=== PATIENT | female | born 1955 | race Caucasian/White ===

== ENCOUNTER 2017-03-07 15:10 | Emergency (ER) | payer OTHER ==
[~2017-03-07] VITALS: Ht 167.6 cm; Wt 90.0 kg
[~2017-03-07 15:10] MED LIST: DIAZ-90 PO; HYDR-762 PO; IBUP400T22 PO; MELO7.5O PO; METF850T PO; ONDA4TAB35 PO; PRAM0.1224 PO
[2017-03-07 15:12] VITALS: Ht 167.6 cm; Wt 90.0 kg
[2017-03-07] MEDS ORDERED: KETOROLAC 15 MG INJ IM STA ×2 (15:46→17:18)
[2017-03-07] MEDS ORDERED: DIAZEPAM 5 MG TAB PO ONE (16:00)
[2017-03-07] MEDS ORDERED: KETOROLAC 15 MG INJ IV STA (16:23)
[2017-03-07] MEDS ORDERED: ONDANSETRON (ODT) 4 MG TAB ODT STA (16:23)
[2017-03-07] MEDS ORDERED: HYDR-906 PO (16:55)
--- NOTE | 2017-03-07 16:55 | ERD ---
ER Documentation Chief Complaint Date/Time DATE: 03/07/17 TIME: 16:50 Chief Complaint CHRONIC BACK PAIN , WORSE X 2 DAYS HPI This 61-year-old female presents to emergency department for treatment of chronic back pain, history of disc disease, on Mobic and ibuprofen, history of cortisone injections a year and a half ago. Patient denies any alteration in bowel or bladder, difficulty ambulating, reports pain with ambulating. She reports that pain is located on left side radiating to left leg. Routine medication is not helping. Patient denies that she has gone to physical therapy in the last year, patient is not treated by pain management. ROS All systems reviewed and are negative except as per history of present illness. Medications Home Meds Active Scripts Diazepam* (Valium*) 5 Mg Tablet, 5 MG PO Q8 Y for MUSCLE SPASMS, #10 TAB Prov:CHAD MILLIGAN MD 06/26/15 Ondansetron Hcl* (Zofran* ODT) 4 mg -ODT Tab.disper, 4 MG PO Q6 Y for NAUSEA AND /OR VOMITING, #20 TAB Prov:CHAD MILLIGAN MD 06/26/15 Hydrocodone Bit-Acetaminophen* ([place]*) 10-325 Mg Tablet, 1 TAB PO Q6 Y for PAIN , #20 TAB Prov:CHAD MILLIGAN MD 06/26/15 Reported Medications Ibuprofen* (Ibuprofen*) 400 Mg Tablet, PO Q6H Y for PAIN, TAB 06/26/15 Pramipexole* (Mirapex*) 0.125 Mg Tablet, PO HS, TAB 06/26/15 Meloxicam* (Meloxicam*) 7.5 Mg/5 Ml Oral.susp, 15 MG PO BID, ML 06/26/15 Metformin Hcl* (Metformin Hcl*) 850 Mg Tablet, 850 MG PO BID WITH MEALS, TAB 06/26/15 Allergies Allergies: Coded Allergies: Penicillins (Verified Allergy, Mild, 06/26/15) PMhx/Soc History of Surgery: No Anesthesia Reaction: No Hx Neurological Disorder: No Hx Respiratory Disorders: No Hx Cardiac Disorders: No Hx Psychiatric Problems: No Hx Miscellaneous Medical Probl: No Hx Alcohol Use: No Hx Substance Use: No Hx Tobacco Use: Yes (1/2 PACK A DAY) Smoking Status: Current every day smoker Physical Exam Vitals Vital Signs Date Time Temp Pulse Resp B/P Pulse Ox O2 Delivery O2 Flow Rate FiO2 03/07/17 15:12 98.0 90 18 172/89 98 Vitals stable, triage notes reviewed Physical Exam Const: Obese, well-nourished well-hydrated no acute distress Head: Atraumatic Eyes: Normal Conjunctiva, PERRLA, EOM ENT: Normal External Ears, Nose and Mouth, mucous membranes. Neck: Resp: Respirations even and unlabored, no respiratory distress Cardio: Abd: Soft, non tender, non distended. Normal bowel sounds Skin: Back Exam: Skin: [No bruising or rash Compartments: Soft Motor: Normal flexion and extension of bilateral hip/knee/ ankle/foot Sensation: Intact to light touch throughout Bones: No midline TTP Ext: Neur: Awake and alert Psych: Normal Mood and Affect Results 24 hrs Current Medications Medications (Trade) Dose Ordered Sig/Lokesh Route PRN Reason Start Time Stop Time Status Last Admin Dose Admin Ketorolac Tromethamine (Toradol) 15 mg ONCE STAT IM 03/07/17 15:46 03/07/17 15:48 DC 03/07/17 15:57 Diazepam (Valium) 5 mg ONCE ONCE PO 03/07/17 16:00 03/07/17 16:01 DC 03/07/17 15:56 Ketorolac Tromethamine (Toradol) 15 mg ONCE STAT IV 03/07/17 16:23 03/07/17 16:24 Cancel Ondansetron HCl (Zofran Odt) 4 mg ONCE STAT ODT 03/07/17 16:23 03/07/17 16:24 Cancel Departure Condition: Good Patient Instructions: Back Pain (Acute Or Chronic) Referrals: [facility] Additional Instructions: Thank you for for coming to [facility] for your care today. Please ask your nurse or provider if you have questions about your care today and do not leave until all your questions have been answered. Please use any medications given as directed and follow-up with your doctor (or the doctor you were referred to) in the next 2-3 days. If you do not have a primary care doctor you may follow up at the [facility] (listed below). You may also use motrin and tylenol as needed for fever and/or pain unless instructed otherwise by your provider or nurse. Indications for more urgent follow-up have been discussed, but you may return to the Emergency Department at ANY time for any worrisome or worsening symptoms. If you have abdominal pain, please know that no test or exam you received is perfect and you should follow up within 8 hours for continued pain. If you had any imaging studies today, such as an X-Ray or CT Scan, these studies will be reviewed later by a radiologist. You will be called if there are important findings that were not identified today, so make sure the contact information you provided at registration is correct. If you received any narcotic pain control medicine today, such as Vicodin, Morphine or Dilaudid, your coordination and judgment may be affected for a number of hours. Please do not drive or operate heavy machinery, and you may want someone to assist you at home. If you were given a prescription for narcotic medication, be aware that it is very addictive- use sparingly and only if necessary. LEON LOVE Mar 07, 2017 16:55
== END 2017-03-07 17:29 | disposition home or self-care (01) ==
LOC: FTE 15:10
DX: M54.9 Dorsalgia, unspecified (principal); F17.210 Nicotine dependence, cigarettes, uncomplicated; Z79.84 Long term (current) use of oral hypoglycemic drugs
CPT/HCPCS: 96372; J1885; Z7502; Z7610

== ENCOUNTER 2019-04-12 05:41 | Emergency (ER) | payer OTHER ==
[~2019-04-12] VITALS: Ht 162.6 cm; Wt 85.0 kg
[~2019-04-12 05:41] MED LIST changes: +CYCL10TA7 PO; -DIAZ-90 PO; +DIAZ5TAB PO; +HYDR-4011 PO; +IBUP-1541 PO; -IBUP400T22 PO; +IBUP800T48 PO; -METF850T PO; +METF850T13 PO
[2019-04-12 05:44] VITALS: Ht 162.6 cm; Wt 85.0 kg
[2019-04-12] MEDS ORDERED: KETOROLAC 60 MG INJ IM STA (06:22)
[2019-04-12] MEDS ORDERED: HYDROCODONE/APAP (10/325) TAB PO ONE (06:30)
[2019-04-12 07:02] VITALS: BP 141/67; PULSE 62; RESP 19
== END 2019-04-12 07:03 | disposition home or self-care (01) ==
LOC: FTE 05:41
DX: M54.5 Low back pain (principal); F17.210 Nicotine dependence, cigarettes, uncomplicated; E11.9 Type 2 diabetes mellitus without complications; G20 Parkinson's disease; Z79.84 Long term (current) use of oral hypoglycemic drugs
CPT/HCPCS: 96372; J1885; Z7502; Z7610